=== PATIENT | female | born 1995 | race Caucasian/White ===

== ENCOUNTER → 2019-12-26 | Outpatient (CLI) | payer BC ==
[~2019-12-26] MED LIST: IBU600 MG PO; PERCOCET 325 MG1 TA2 PO; PRENATAL
== END ==
LOC: DIA.ED
DX: O24.419 Gestational diabetes mellitus in pregnancy, unspecified control (principal)
CPT/HCPCS: G0108

== ENCOUNTER → 2020-01-08 | Outpatient (CLI) | payer BC | LOC: DIA.ED 13:28 | DX: O24.419 Gestational diabetes mellitus in pregnancy, unspecified control (principal) | CPT/HCPCS: G0108 ==